=== PATIENT | female | born 1945 | race Caucasian/White ===

== ENCOUNTER 2022-05-16 18:59 | Inpatient (IN) ==
[2022-05-16 20:53] LABS: Basophils # (auto) 0.01 K/uL (0-0.2); Basophils % (auto) 0.1 %; Eosinophils # (auto) 0.01 K/uL (0-0.50); Eosinophils % (auto) 0.1 %; Hematocrit (blood only) 38.5 % (37.0-47.0); Hemoglobin 13.2 g/dl (12.0-16.0); Immature Granulocytes # (auto) 0.02 K/uL (0.01-0.20); Immature Granulocytes % (auto) 0.3 %; Lymphocytes # (auto) 1.01 K/uL (1.2-3.4); Lymphocytes % (auto) 14.8 %; Mean Corpuscular Hemoglobin 29.9 pg (25.0-34.0); Mean Corpuscular Hgb Conc 34.3 g/dL (32.0-36.0); Mean Corpuscular Volume 87.3 fL (80.0-100.0); Mean Platelet Volume 10.6 fL (9.4-12.4); Monocytes % (auto) 8.8 %; Neutrophils # (auto) 5.16 K/uL (1.40-6.50); Neutrophils % (auto) 75.9 %; Platelet Count 246 K/uL (130-400); RDW Coefficient of Variation 14.6 % (11.5-14.5); RDW Standard Deviation 47.2 fL (36.4-46.3); Red Blood Count 4.41 M/uL (4.20-5.40); White Blood Count 6.81 K/ul (4.8-10.8)
[2022-05-16 21:22] LABS: Albumin Level 2.9 gm/dl (3.4-5.0); Anion Gap 8 (3-11); Bilirubin,Total 0.9 mg/dl (0.2-1.0); Calcium 9.3 mg/dl (8.5-10.1); Carbon Dioxide 25 mmol/L (21-32); Chloride 97 mmol/L (98-107); Potassium 4.2 mmol/L (3.5-5.1); Sodium 130 mmol/L (136-145)
[2022-05-16 21:28] LABS: Alanine Aminotransferase 37 U/L (7-52); Alkaline Phosphatase 229 U/L (34-104); Aspartate Aminotransferase 96 U/L (13-39); BUN Creatinine Ratio 41.2 (10-20); Blood Urea Nitrogen 42 mg/dl (6-23); Est GFR (Non-African American) 52.6 ml/min; Glucose 104 mg/dl (70-99(Fasting)); Total Protein 5.9 gm/dl (6.0-8.3)
[2022-05-16] MEDS ORDERED: MoRPHine SULFATE 4 MG/ML 1 ML CARP\\VIAL IV PRN (21:46)
[2022-05-16] MEDS ORDERED: ONDANSETRON INJ 2 MG/ML 2 ML VIAL IV STA (21:46)
--- NOTE | 2022-05-16 21:49 | Emergency Department Note ---
Impression & Plan Contusion of lower leg, right, Cellulitis, Acute hyponatremia ED Provider Note NAME: RANDALL PRINGLE AGE: 76 SEX: F : 1945 ARRIVES VIA: Ambulance INFORMANT: Patient, ED PROVIDER(S): Angel May DO CHIEF COMPLAINT: Leg pain HPI: The patient is a 76-year-old female who presented to the emergency department for an evaluation of leg pain. The patient had a fall earlier in the week. She was seen in our facility and had x-rays obtained. No definite fracture was noted. The patient returns tonight because of increasing pain and swelling especially in the right leg. She denies having any head injury. She was not seen by her family doctor for the symptoms. She has had no fever. She denies having any redness. She denies having any knee pain or hip pain. The patient presented with family members who also help provide history. ROS: See above HPI for pertinent positives & negatives. A total of 10 systems reviewed and were otherwise negative. PAST MEDICAL HISTORY: See Below PAST SURGICAL HISTORY: See Below FAMILY HISTORY: See Below SOCIAL HISTORY: See Below HOME MEDICATIONS: See Below ALLERGIES: See Below VITALS: See Below PHYSICAL EXAMINATION: GENERAL: Patient is awake alert in no acute distress patient is resting comfortably and showing no signs of anxiety EYES: The conjunctivae are clear. The pupils are round and reactive. EARS, NOSE, MOUTH AND THROAT: The nose is without any evidence of any deformity. Mucous membranes are moist. Tongue is midline. NECK: The neck is nontender and supple. RESPIRATORY: Normal respiratory effort is noted there is no evidence of wheezing rhonchi or rales CARDIOVASCULAR: Regular rate and rhythm noted there no murmurs rubs or gallops normal S1 normal S2. GASTROINTESTINAL: The abdomen is soft. Abdomen is nontender. MUSCULOSKELETAL/EXTREMITIES: There is no evidence of gross deformity full range of motion is noted in the hips and shoulders. There is tenderness to palpation over the right anterior pollard. There is no ecchymosis. There is no erythema. SKIN: Skin was warm and dry. Pedal edema was noted bilaterally. There is no signs of cellulitis. Pulses are symmetric in both feet. NEUROLOGIC: Patient is awake alert and oriented x3 MEDICAL DECISION MAKING: The patient is a 76-year-old female who presented to the emergency department for an evaluation of leg pain. The patient had a fall a few days ago. She was seen in our facility and had normal x-rays. She presents back today with family members because of severe pain. The patient has no soft tissue air noted on x- ray. She has no skin changes of erythema overlying the injury or the right leg. She was treated with pain medication in the emergency department. She was also treated with IV antibiotics after inflammatory markers were significantly elevated. She was ordered blood cultures. I discussed patient's laboratory and radiographic studies with her and her family members. I discussed her condition with the on-call [facility]. They have agreed to evaluate the patient in the emergency department for further management and disposition. Triage Nursing notes reviewed. Prior medical records reviewed Vital Signs: reviewed and remarkable for no significant abnormalities Differential diagnosis: Fracture, subluxation, dislocation, contusion, ligamentous injury, neurovascular, compartment syndrome, rhabdomyolysis, as well as other pathologies. ER treatment provided: See below Diagnostics interpreted by me: ECG: none Cardiac Monitoring: An order was placed for continuous cardiac monitoring. The monitor shows a rate of 90 bpm with sinus rhythm. Laboratory studies: As stated above and show below. Imaging studies: See below. Radiographic imaging was reviewed by myself Consultation(s): I discussed this case with Dr. Newsome who is on-call for the [facility]. 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 Son No problems noted. Daughter No problems noted. Family/Other Breast cancer Maternal aunt Social History Smoking Status: Never smoker Cigarettes Per Day: 1 PPD x 50+yrs; Second Hand Exposure: Yes; Hx Alcohol Use: No Hx Substance Use: No Preferred Language: Palestinian Communication Ability: Effective Visual Impairment: No Limitations Hearing Ability: Normal Packer Inspector Required: No Beliefs That Will Affect Care: None marital status: Current Living Situation: Alone current occupational status: retired current occupation: RN Feels Safe at Home: Yes caffeine: Yes (1 cup/day) during the past year weight has: remained stable Assistive Devices: Walker Allergies Allergies Allergy/AdvReac Type Severity Reaction Status Date / Time Iodinated Contrast Media Allergy Severe SOB Verified 01/28/22 15:46 Penicillins Allergy Severe SOB Verified 01/28/22 15:46 aspirin AdvReac Mild Stomach Verified 01/28/22 15:46 upset codeine AdvReac Mild Stomach Verified 01/28/22 15:46 upset Home Meds Home Medications Medication Instructions Recorded Confirmed lisinopril 20 mg tablet 20 mg PO DAILY 08/22/21 01/28/22 mecobalamin (vitamin B12) 10,000 10,000 mcg subcut MONTHLY 08/22/21 01/28/22 mcg solution for injection mecobalamin (vitamin B12) 5,000 5,000 mcg PO DAILY 08/22/21 01/28/22 mcg disintegrating tablet metoprolol succinate 50 mg 50 mg PO BID 08/22/21 01/28/22 tablet,extended release 24 hr palbociclib 75 mg capsule (Ibrance) 75 mg PO DAILY 08/22/21 01/28/22 Results & Data (ED) Vital Signs Vital Signs - 24 hr 05/16/22 19:27 05/16/22 21:09 05/16/22 22:56 Temperature 36.5 C Temperature Source Temporal Artery Scan Pulse Rate 101 H Pulse Rate [Apical] 88 90 Pulse Rhythm [Apical] Regular Pulse Strength [Apical] Normal Respiratory Rate 18 25 H 16 Respiratory Effort / Characteristics Short of Breath Non-Labored Spontaneous Respiratory Depth Normal Normal Respiratory Pattern Regular Blood Pressure 127/80 Blood Pressure [Right Arm] 170/101 H 127/93 Blood Pressure Mean 95 Blood Pressure Mean [Right Arm] 124 104 Pulse Oximetry 95 98 94 Oxygen Delivery Method Room Air Room Air Room Air Sepsis Recent Fever Within 48 Hours No Sepsis New/Unexplained Change in Mental Status No Sepsis Action Taken by Nursing No Action Required Home Medications Current Medication List: was personally reviewed by me Laboratory Data Attestation: I reviewed the patient's lab results. 05/16/22 20:24 05/16/22 20:24 Lab Results 05/16/22 05/16/22 05/16/22 Range/Units 20:24 20:24 20:24 WBC 6.81 (4.8-10.8) K/ul RBC 4.41 (4.20-5.40) M/uL Hgb 13.2 (12.0-16.0) g/dl Hct 38.5 (37.0-47.0) % MCV 87.3 (80.0-100.0) fL MCH 29.9 (25.0-34.0) pg MCHC 34.3 (32.0-36.0) g/dL RDW Std Deviation 47.2 H (36.4-46.3) fL RDW Coeff of Roberta 14.6 H (11.5-14.5) % Plt Count 246 (130-400) K/uL MPV 10.6 (9.4-12.4) fL Immature Gran % (Auto) 0.3 % Neut % (Auto) 75.9 % Lymph % (Auto) 14.8 % [place] % (Auto) 8.8 % Eos % (Auto) 0.1 % Baso % (Auto) 0.1 % Neut # (Auto) 5.16 (1.40-6.50) K/uL Lymph # (Auto) 1.01 L (1.2-3.4) K/uL [place] # (Auto) 0.60 H (0.11-0.59) K/uL Eos # (Auto) 0.01 (0-0.50) K/uL Baso # (Auto) 0.01 (0-0.2) K/uL Immature Gran # (Auto) 0.02 (0.01-0.20) K/uL ESR 75 H (0-30) mm/hr Sodium 130 L (136-145) mmol/L Potassium 4.2 (3.5-5.1) mmol/L Chloride 97 L (98-107) mmol/L Carbon Dioxide 25 (21-32) mmol/L Anion Gap 8 (3-11) BUN 42 H (6-23) mg/dl Creatinine 1.02 (0.6-1.2) mg/dl Est Cr Clr Drug Dosing Not Reportable Est GFR ( Amer) 61.0 ml/min Est GFR (Non-Af Amer) 52.6 ml/min BUN/Creatinine Ratio 41.2 H (10-20) Glucose 104 H (70-99(Fasting)) mg/dl Calcium 9.3 (8.5-10.1) mg/dl Total Bilirubin 0.9 (0.2-1.0) mg/dl AST 96 H (13-39) U/L ALT 37 (7-52) U/L Alkaline Phosphatase 229 H (34-104) U/L Total Creatine Kinase 81 (26-192) U/L C-Reactive Protein 15.54 H (0-0.5) mg/dl Total Protein 5.9 L (6.0-8.3) gm/dl Albumin 2.9 L (3.4-5.0) gm/dl Globulin 3.0 (2.5-4.0) gm/dl Albumin/Globulin Ratio 1.0 (0.9-2) Procalcitonin (0-0.5) ng/ml 05/16/22 Range/Units 20:24 WBC (4.8-10.8) K/ul RBC (4.20-5.40) M/uL Hgb (12.0-16.0) g/dl Hct (37.0-47.0) % MCV (80.0-100.0) fL MCH (25.0-34.0) pg MCHC (32.0-36.0) g/dL RDW Std Deviation (36.4-46.3) fL RDW Coeff of Roberta (11.5-14.5) % Plt Count (130-400) K/uL MPV (9.4-12.4) fL Immature Gran % (Auto) % Neut % (Auto) % Lymph % (Auto) % [place] % (Auto) % Eos % (Auto) % Baso % (Auto) % Neut # (Auto) (1.40-6.50) K/uL Lymph # (Auto) (1.2-3.4) K/uL [place] # (Auto) (0.11-0.59) K/uL Eos # (Auto) (0-0.50) K/uL Baso # (Auto) (0-0.2) K/uL Immature Gran # (Auto) (0.01-0.20) K/uL ESR (0-30) mm/hr Sodium (136-145) mmol/L Potassium (3.5-5.1) mmol/L Chloride (98-107) mmol/L Carbon Dioxide (21-32) mmol/L Anion Gap (3-11) BUN (6-23) mg/dl Creatinine (0.6-1.2) mg/dl Est Cr Clr Drug Dosing Est GFR ( Amer) ml/min Est GFR (Non-Af Amer) ml/min BUN/Creatinine Ratio (10-20) Glucose (70-99(Fasting)) mg/dl Calcium (8.5-10.1) mg/dl Total Bilirubin (0.2-1.0) mg/dl AST (13-39) U/L ALT (7-52) U/L Alkaline Phosphatase (34-104) U/L Total Creatine Kinase (26-192) U/L C-Reactive Protein (0-0.5) mg/dl Total Protein (6.0-8.3) gm/dl Albumin (3.4-5.0) gm/dl Globulin (2.5-4.0) gm/dl Albumin/Globulin Ratio (0.9-2) Procalcitonin 58.79 H (0-0.5) ng/ml Administered Medications Morphine Sulfate (Morphine Sulfate 4 Mg/Ml 1 Ml Carp\Vial) 4 mg IV Q30M PRN PRN Reason: Pain Stop: 05/30/22 21:45 Last Admin: 05/16/22 21:52 Dose: 4 mg Documented By: NELL Discontinued Medications Ondansetron HCl (Ondansetron Inj 2 Mg/Ml 2 Ml Vial) 4 mg IV NOW STA Stop: 05/16/22 21:47 Last Admin: 05/16/22 21:51 Dose: 4 mg Documented By: NELL Imaging Data Attestation: I personally reviewed and interpreted this imaging study as follows: My Impression: X-rays of the right tib-fib were obtained in the emergency department. My interpretation is no definite fracture no dislocation, this was compared to x- ray from earlier this week and no acute changes were noted. Radiologist's Impression: Patient: RANDALL PRINGLE (Female) : 41 Status: ER Date: 05/16/22 23:24 Room #:B History: RIGHT LEG SWELLING Slices: 22 Priors: Tech: Blank Arellano @ [phone] Exams: US VENOUS RIGHT LOWER EXTREMITY Contrast: Accession Numbers: [id number] Referring Physician: REFERRED SELF Preliminary Findings Only See Final Report For Complete Findings US VENOUS RIGHT LOWER EXTREMITY: No evidence of deep venous thrombosis. Radiologist: José Olvera MD Study ready at 23:28 and initial results transmitted at 23:39 Discharge Plan Visit Data Chief Complaint: Leg Injury/Pain Stated Complaint: RT. LEG PAIN/SWELLING ED Provider: Angel May Discharge Problem: Contusion of lower leg, right, Cellulitis, Acute hyponatremia Patient Disposition: Being Evaluated by Hospitalist Forms Stand Alone Forms: My [employer] Prescriptions Prescriptions: No Action lisinopril 20 mg tablet 20 mg PO DAILY metoprolol succinate 50 mg tablet extended release 24 hr 50 mg PO BID mecobalamin (vitamin B12) 5,000 mcg tablet,disintegrating 5,000 mcg PO DAILY mecobalamin (vitamin B12) 10,000 mcg recon soln 10,000 mcg subcut MONTHLY Ibrance 75 mg capsule 75 mg PO DAILY Rx Instructions: administer on days 1 through 21 of a 28-day treatment cycle Referrals Referrals: Benjamín Graff MD [Primary Care Provider] - : Contusion of lower leg, right Qualifiers: Encounter type: initial encounter Qualified Code(s): S80.11XA - Contusion of right lower leg, initial encounter Cellulitis Qualifiers: Site of cellulitis: extremity Site of cellulitis of extremity: lower extremity Laterality: right Qualified Code(s): L03.115 - Cellulitis of right lower limb
[2022-05-16 22:30] LABS: C Reactive Protein 15.54 mg/dl (0-0.5); Creatine Kinase 81 U/L (26-192)
[2022-05-16] MEDS ORDERED: VANCOMYCIN HCL 2,000 MG in SODIUM CHLORIDE 0.9% 500 ML IV ONE (23:35)
[2022-05-16] MEDS ORDERED: VANCOMYCIN CONSULT ACTIVE PRN (23:35)
[2022-05-17] MEDS: cefTRIAXone SODIUM 2,000 MG/70 ML BAG IV STA ×2 (00:48→01:01)
[2022-05-17] MEDS ORDERED: POLYETHYLENE (MIRALAX) 17 GM PACK PO PRN (03:01)
[2022-05-17] MEDS ORDERED: HYDROmorphone INJ 0.5 MG/0.5 ML SYR IV PRN (03:01)
[2022-05-17] MEDS ORDERED: ALBUTEROL HFA 8 GM INHALER INH PRN (03:01)
--- NOTE | 2022-05-17 05:51 | History and Physical Report ---
DATE OF ADMISSION: 05/17/2022 CHIEF COMPLAINT: Status post fall, right lower extremity pain. HISTORY OF PRESENT ILLNESS: This is a 76-year-old female with past medical history significant for hyperlipidemia, grade 1 diastolic dysfunction, hypertension, chronic kidney disease stage III, history of MRSA, history of viral myocarditis, history of GI bleed, history of chemotherapy-induced neuropathy, history of bilateral breast cancer, initially diagnosed in June 2010, status post bilateral mastectomies, left axillary lymph node dissection in 2015, noticed to have metastatic disease involving the spine as well as paraesophageal region, now has liver metastatic disease as well as bilateral lung nodules, which was suspicious in 2019, malignant pleural effusion. She is status post adjuvant chemotherapy, adjuvant radiation therapy. Currently, chemo is stopped. She has bilateral malignant pleural effusion, status post right- sided PleurX catheter placement, gets fluid drained 3 times a week. She is currently DNR/DNI. She was living alone, ambulating without any support. As per daughter in the room, lower extremity swelling is getting worse since the last 1 month. She fell a couple of days ago, mechanical fall and fell on the right side and today she was noticed to have a lot of pain. Currently after fall living with the daughter, and was brought into the hospital because of pain. Initial workup was possible cellulitis and ER started on vancomycin. Resting comfortably and hemodynamically stable. Denies any headache. No neck pain, no back pain. No chest pain. While resting no shortness of breath. Appetite is okay. No difficulty swallowing. Vision is okay. No earache. has some runny nose. No sore throat. No nausea, no abdominal pain. Normal bowel and bladder movements as per the patient. ALLERGIES: IODINATED CONTRAST MEDIA, PENICILLIN, ASPIRIN, CODEINE. PAST MEDICAL HISTORY: As mentioned above. PAST SURGICAL HISTORY: Bilateral radical mastectomy. MEDICATIONS: The patient is currently on albuterol 2 puffs inhalation q. 4 hours p.r.n., vitamin B12 1000 mcg subcutaneous monthly, vitamin B12 500 mcg p.o. b.i.d., lisinopril 20 mg p.o. daily, metoprolol tartrate 50 mg p.o. b.i.d., prochlorperazine 5 mg p.o. t.i.d., torsemide 20 mg p.o. a.m., Anoro Ellipta one inhalation q.p.m. FAMILY HISTORY: Significant for mother had alcoholism, liver cancer; father had pancreatic and liver cancer; sister has breast cancer. SOCIAL HISTORY: , currently living with the daughter. Former smoker, quit in 2019, smoked 1 pack a day for 60 years. Stopped drinking alcohol in early 30s. No drug use. REVIEW OF SYSTEMS: As per HPI. Rest of the review of systems is negative. PHYSICAL EXAMINATION: GENERAL: The patient is of moderate build, not in acute distress. VITAL SIGNS: Temperature 36.5, pulse 93, respiratory rate 28, blood pressure 142/72, oxygen 96% on room air. HEENT: Pupils equal, round and reactive to light. Oral mucosa moist. NECK: No JVD or neck masses. CARDIOVASCULAR: S1 and S2 heard. Regular rate and rhythm. No murmur, no gallop. RESPIRATORY SYSTEM: Normal AP diameter. No accessory muscle use. No wheezing, no crackles. ABDOMEN: Soft, bowel sounds present, nontender, no distention. CENTRAL NERVOUS SYSTEM: Alert and oriented. Speech is clear. Obeys simple commands. Insight is okay. Moves extremities. EXTREMITIES: Bilateral lower extremity gross edema present. Right lower extremity, tenderness in the pollard region and also mild erythematous changes in the lower part of the leg. LABORATORY DATA: WBC 6.8, hemoglobin 13.2, hematocrit 38.5, platelets 246. ESR 75. Sodium 130, potassium 4.2, chloride 97, bicarbonate 25, BUN 42, creatinine 1.02, serum glucose 104, calcium 9.3, total bilirubin 0.9, AST 96, ALT 37, alkaline phosphatase 229. C-reactive protein 15.5, procalcitonin 58. SARS-CoV-2 rapid test negative. IMAGING DATA: Venous Doppler negative for DVT, tibia fibula x-ray results are pending. EKG: Sinus rhythm with PACs at a rate of 96. ASSESSMENT AND PLAN: This 76-year-old female presents with a mechanical fall and right lower extremity pain. 1. Mechanical fall, right lower extremity pain, possible cellulitis: Will follow the tibia fibula x-ray results and also get a CT scan of the right lower extremity. ER started empirically on vancomycin, which will be continued for now. Pain control. When stable, PT/OT. Monitor in the hospital. 2. History of metastatic bilateral breast cancer, status post bilateral mastectomy, chemoradiation: Currently not on any chemo. Currently, the patient is DNR/DNI. Malignant pleural effusion, status post PleurX catheter on the right side, gets drained 3 times a week. 3. Chronic diastolic congestive heart failure: Having lower extremity edema. Continue home torsemide. Monitor for any volume overload. 4. History of hypertension: Continue lisinopril, metoprolol. We will monitor the blood pressure. 5. Chronic kidney disease stage III: Currently with a creatinine of 1.02. Will follow the labs. 6. Hyponatremia: Sodium of 130, on diuretics. Will follow the repeat labs. 7. Deep venous thrombosis prophylaxis: Placed on Lovenox. DISPOSITION: Closely monitor in the medical floor. PT/OT prior to discharge. Social service to help with discharge planning. CODE STATUS: DNR/DNI as per my discussion with the patient. Job ID: [id number] MTDD
--- NOTE | 2022-05-17 06:52 | CT Scan Report ---
CT tib/fib RT wo con CLINICAL HISTORY: s/p fall. tender down knee to ankle right lower ex COMPARISON STUDY: Right tibia and fibula radiographs May 16, 2022. TECHNIQUE: Axial images of the right tibia and fibula and lower leg were obtained without IV contrast . Sagittal and coronal reconstructions were viewed. Automated exposure control was utilized for the s tudy. A dose lowering technique was utilized adhering to the principles of ALARA. FINDINGS: A small right knee joint effusion is noted. No acute fracture within the right tibia or fib deshawn is identified. There is extensive subcutaneous edema of the visualized right lower extremity. No fluid collection is identified to suggest hematoma or abscess. There is no soft tissue gas. Alignment of the right knee and right ankle is anatomic. There is moderately osteoarthritic. IMPRESSION: 1. No acute fracture within the right tibia or fibula. 2. Extensive subcutaneous edema of the visualized right lower extremity. No fluid collection to sugge st hematoma. 3. Small right knee joint effusion. Moderate right knee osteoarthritis. ACT 112: Negative or not required by law. Electronically signed by: Jose Eduardo Panchal M.D. 05/17/2022 6:49 AM
--- NOTE | 2022-05-17 07:13 | Ultrasound Report ---
RIGHT LOWER EXTREMITY VENOUS DOPPLER CLINICAL HISTORY: Right lower extremity edema. Evaluate for deep venous thrombus. COMPARISON STUDY: No previous studies for comparison. TECHNIQUE: Sonography of the deep venous system of the right lower extremity was performed. Compress ion and augmentation were evaluated. FINDINGS: The right common femoral, superficial femoral and popliteal veins were compressible. Augme ntation was normal. Flow was shown within the deep calf vessels. Extensive subcutaneous edema of the right lower extremity is noted. IMPRESSION: No evidence of deep venous thrombus within the right lower extremity. ACT 112: Negative or not required by law. Electronically signed by: Jose Eduardo Panchal M.D. 05/17/2022 7:12 AM
[2022-05-17 07:15] LABS: Basophils # (auto) 0.01 K/uL (0-0.2); Basophils % (auto) 0.1 %; Eosinophils # (auto) 0.02 K/uL (0-0.50); Eosinophils % (auto) 0.3 %; Hematocrit (blood only) 40.5 % (37.0-47.0); Hemoglobin 13.5 g/dl (12.0-16.0); Immature Granulocytes # (auto) 0.02 K/uL (0.01-0.20); Immature Granulocytes % (auto) 0.3 %; Lymphocytes # (auto) 1.64 K/uL (1.2-3.4); Mean Corpuscular Hgb Conc 33.3 g/dL (32.0-36.0); Mean Platelet Volume 10.3 fL (9.4-12.4); Monocytes # (auto) 0.67 K/uL (0.11-0.59); Neutrophils % (auto) 68.3 %; Platelet Count 241 K/uL (130-400); RDW Coefficient of Variation 14.8 % (11.5-14.5); White Blood Count 7.46 K/ul (4.8-10.8)
[2022-05-17] MEDS: ENOXAPARIN INJ 40 MG/0.4 ML SYR SQ SCH (07:50)
[2022-05-17] MEDS: CYANOCOBALAMIN (B-12) 500 MCG TABLET PO SCH ×2 (07:52→20:39)
[2022-05-17] MEDS: METOPROLOL TARTRATE 50 MG TAB PO SCH ×2 (07:52→19:50)
[2022-05-17] MEDS: PROCHLORPERAZINE MALEATE 5 MG TAB PO SCH ×3 (07:53→20:39)
[2022-05-17] MEDS: TORSEMIDE 20 MG TAB PO SCH (07:53)
[2022-05-17] MEDS: ACETAMINOPHEN 325 MG TAB PO PRN ×2 (07:55→12:41)
--- NOTE | 2022-05-17 08:22 | Communication Note ---
Date of Service: May 17, 2022 Transferring to med/tele for possible acute diastolic chf. Consulted cardiology
[2022-05-17 08:32] LABS: BUN Creatinine Ratio 43.4 (10-20); Calcium 9.9 mg/dl (8.5-10.1); Creatinine Clr Calc Pharmacy 40.2 ml/min; Est GFR (African American) 63.3 ml/min; Est GFR (Non-African American) 54.6 ml/min; Potassium 4.2 mmol/L (3.5-5.1)
--- NOTE | 2022-05-17 08:48 | XRay Report ---
XR tibia fibula RT 2V CLINICAL HISTORY: fall COMPARISON: Right tibia and fibula radiographs May 14, 2022. FINDINGS: No acute fracture within the right tibia or fibula is identified. No osseous lesions are n oted. Extensive right lower leg soft tissue swelling is present. IMPRESSION: 1. No acute fracture within the right tibia or fibula. 2. Extensive right lower leg soft tissue swelling. ACT 112: Negative or not required by law. Electronically signed by: Jose Eduardo Panchal M.D. 05/17/2022 8:46 AM
[2022-05-17] MEDS ORDERED: lisinopril 20 MG TAB PO SCH (09:00)
--- NOTE | 2022-05-17 10:12 | XRay Report ---
XR chest 1V portable HISTORY: Shortness of breath. ? CHF COMPARISON: None. FINDINGS: No pneumothorax. A right basilar chest tube appears in good position. There is a small righ t pleural effusion. There is a small to moderate left pleural effusions. Left basilar densities favor compressive atelectasis. The heart is mildly enlarged. S-shaped scoliosis is noted. Right jugular Po rt-A-Cath terminates in the distal SVC. There are calcifications within the aortic knob. Mild chronic interstitial thickening is noted. A few scarlike density seen within the right lung apex. IMPRESSION: 1. There is a right basilar chest tube and a small right pleural effusion. No pneumothorax. 2. There is a small to moderate left pleural effusion with left basilar densities favoring compressiv e atelectasis. ACT 112: Negative or not required by law. Electronically signed by: Baron Han M.D. 05/17/2022 10:11 AM
--- NOTE | 2022-05-17 10:59 | Cardiology Consultation ---
Date of Consultation May 17, 2022 Assessment & Plan (1) Edema: (2) Pleural effusion, malignant: (3) Hyponatremia: Plan Patient admitted for leg pain after a fall. Found also to have worsening fluid status in the setting of metastatic breast CA. She has been on torsemide for several months for b/l edema at times and b/l pleural effusions (malignant) with right Pleurx catheter. Currently she is laying supine, comfortable. No distress. No orthopnea. She does have left moderate pleural effusion with significant edema. No DVT noted. Recommend trial of furosemide 20 mg IV this afternoon to mobilize fluid. Torsemide will be on hold. Repeat IV furosemide tomorrow pending clinical status and labs. Monitor K and NA levels. Sodium lower may be dilutional and should improve with removal of fluid. BP trending lower after AM meds. Reduce lisinopril to 10 mg daily, starting tomorrow. Continue metoprolol. She had an echo in Mar 2022 with preserved LV systolic function, no valvular disease, grade I diastolic dysfunction. No indication to repeat at this time, as it would not change medical management. Case discussed with Dr. West. Supervising Physician Co-Signing Physician Notes Supervising Physician Attestation: I have personally performed a history and physical examination on the patient. I agree with the physician emergency room physician assistant's findings and plan as documented with the following additions. Subjective: Patient without acute complaint. Exam: Pulmonary: Decreased breath sounds at the left base, 2+ bilateral lower extremity edema, patient states her legs are always swollen Data: Chest x-ray with right pleural catheter in place, moderate left pleural effusion Assessment and Plan: Metastatic breast cancer History of malignant pleural effusions Lower extremity edema -Echocardiogram with preserved LVEF, mild diastolic dysfunction. -Furosemide 20 mg IV administered this morning in favor for oral torsemide. -Blood pressure borderline low, systolic readings in the 90s. -Defer further management of diuretics to the hospitalist service. - DVT prophylaxis: Lovenox 40 mg subcutaneously daily. Shailesh West, DO History of Present Illness Reason for Consultation: CHF; Volume Overload Requesting Physician: Dr. Newsome Attending Physician: Dr. West History of Present Illness Patient is a 76 year old female who was admitted to [facility] with weakness and leg pain after a fall at home. She was having difficult getting around and brought to the ER. She has reported also worsening LE edema over the last few days. In ER, no fractures were identified and venous duplex was negative for DVT bilaterally. She has a complex history significant for metastatic breast CA with liver METS, malignant pleural effusions s/p right Pleurx catheter. She stopped chemotherapy several months ago due to progressive disease. She follows with Palliative care and they are considering transitioning to full hospice care. Cardiology was consulted during admission for fluid retention, edema, and concerns this was heart failure. Patient denies cardiac history. She reports being told of a murmur over the last 30+ years, but no valvular issues on repeat echo, most recently in Mar 2022. She admits to SOB with activities but reports this has been problematic for awhile. She has known b/l pleural effusions and was started on torsemide several months ago, which has aided her edema until recently. At time of consult, patient resting in bed comfortably. Denies acute complaints other than leg pain and edema noted b/l. She is laying supine without SOB/orthopnea. No cough. Pleur x drained this morning with 350cc of fluid per nurse. No chest pain. No dizziness or lightheadedness. Allergies Allergy/AdvReac Type Severity Reaction Status Date / Time Iodinated Contrast Media Allergy Severe SOB Verified 05/17/22 00:35 Penicillins Allergy Severe SOB Verified 05/17/22 00:35 aspirin AdvReac Mild Stomach Verified 05/17/22 00:35 upset codeine AdvReac Mild Stomach Verified 05/17/22 00:35 upset Home Medications Medication Instructions Recorded Confirmed Type lisinopril 20 mg tablet 20 mg PO DAILY 08/22/21 05/17/22 History albuterol sulfate 90 mcg/actuation 2 puff inhalation Q4 PRN Shortness 05/17/22 05/17/22 History aerosol inhaler (Ventolin HFA) Of Breath cyanocobalamin (vitamin B-12) 1,000 mcg subcut MONTHLY 05/17/22 05/17/22 History 1,000 mcg/mL injection solution cyanocobalamin (vitamin B-12) 500 500 mcg PO BID 05/17/22 05/17/22 History mcg lozenges (Vitamin B-12) metoprolol tartrate 50 mg tablet 50 mg PO BID 05/17/22 05/17/22 History prochlorperazine maleate 5 mg 5 mg PO TID 05/17/22 05/17/22 History tablet torsemide 20 mg tablet 20 mg PO QAM 05/17/22 05/17/22 History umeclidinium 62.5 mcg-vilanterol 1 ea inhalation QPM 05/17/22 05/17/22 History 25 mcg/actuation powdr for inhalation (Anoro Ellipta) Patient History Medical History Bilateral breast cancer History of chemotherapy History of GI bleed History of radiation therapy Neuropathy Osteonecrosis left jaw Primary malignant neoplasm of breast with metastasis SOB (shortness of breath) Viral myocarditis Surgical History H/O bilateral mastectomy with left axillary lymph node dissection 2010 H/O tubal ligation History of total left knee replacement (TKR) S/P appendectomy S/P cholecystectomy Family History Mother , 73yo Alcoholism Father , 68yo Alcoholism Stomach ulcer Sister Breast cancer Sister Family history unknown Son No problems noted. Son No problems noted. Daughter No problems noted. Family/Other Breast cancer Maternal aunt Social History Smoking Status: Former smoker Cigarettes Per Day: 1 PPD x 50+yrs; Smoking End Date: 6 years ago; Second Hand Exposure: Yes; Hx Alcohol Use: No Hx Substance Use: No Preferred Language: Yakut Communication Ability: Effective Visual Impairment: No Limitations Hearing Ability: Normal Receptionist/Telephone Operator Required: No Beliefs That Will Affect Care: None marital status: Current Living Situation: Family Current Living Situation Comment: Lives with daughter and grand-daughter current occupational status: retired current occupation: RN Other Information That Helps Us Care for You: No Feels Safe at Home: Yes Safety Concerns: Feels Safe At This Time caffeine: Yes (1 cup/day) during the past year weight has: remained stable Assistive Devices: Walker Review of Systems Review of Systems: All systems reviewed & are unremarkable except as noted in HPI & below Physical Exam Constitutional: + ill appearing; no acute distress Neck: trachea midline, no thyromegaly Respiratory: no labored breathing Auscultation: + diminished lung sounds and + wheezes Cardiovascular: Rate/Rhythm: regular rate and regular rhythm Heart Sounds: + murmur (II/ systolic murmur ) Vessels: no JVD Extremities: + edema (2+ edema b/l to thighs. ) Gastrointestinal (Abdomen): normal bowel sounds, soft, nontender, no hepatosplenomegaly Musculoskeletal: no cyanosis or clubbing, extremities motor strength 5/5 Neurologic: PERRL, EOMI, accommodation nl, no face palsy, no dysarthria Results & Data ([facility]) Vital Signs (Past 12 Hours) Vital Signs Temp Pulse Pulse Pulse Resp BP BP 05/17/22 10:10 36.5 C 90 18 95/58 L 05/17/22 09:56 05/17/22 07:16 36.6 C 94 H 16 133/73 05/17/22 03:39 05/17/22 03:28 36.7 C 96 H 18 155/72 H 05/17/22 01:00 93 H 28 H 05/17/22 00:30 91 H 24 05/17/22 00:00 94 H 22 142/72 H 05/16/22 23:41 94 H 26 H 160/81 H 05/16/22 23:40 82 05/16/22 22:56 90 16 127/93 Pulse Ox O2 Del Method 05/17/22 10:10 96 Room Air 05/17/22 09:56 Room Air 05/17/22 07:16 95 Room Air 05/17/22 03:39 Room Air 05/17/22 03:28 94 Room Air 05/17/22 01:00 96 05/17/22 00:30 96 05/17/22 00:00 95 05/16/22 23:41 96 05/16/22 23:40 05/16/22 22:56 94 Room Air Laboratory Results Cardiac Enzymes 05/16/22 Range/Units 20:24 AST 96 H (13-39) U/L CBC 05/16/22 05/17/22 Range/Units 20:24 07:01 WBC 6.81 7.46 (4.8-10.8) K/ul RBC 4.41 4.50 (4.20-5.40) M/uL Hgb 13.2 13.5 (12.0-16.0) g/dl Hct 38.5 40.5 (37.0-47.0) % Plt Count 246 241 (130-400) K/uL Neut # (Auto) 5.16 5.10 (1.40-6.50) K/uL Lymph # (Auto) 1.01 L 1.64 (1.2-3.4) K/uL [place] # (Auto) 0.60 H 0.67 H (0.11-0.59) K/uL Eos # (Auto) 0.01 0.02 (0-0.50) K/uL Baso # (Auto) 0.01 0.01 (0-0.2) K/uL Comprehensive Metabolic Panel 05/16/22 05/17/22 Range/Units 20:24 07:01 Sodium 130 L 132 L (136-145) mmol/L Potassium 4.2 4.2 (3.5-5.1) mmol/L Chloride 97 L 99 (98-107) mmol/L Carbon Dioxide 25 21 (21-32) mmol/L BUN 42 H 43 H (6-23) mg/dl Creatinine 1.02 0.99 (0.6-1.2) mg/dl Glucose 104 H 69 L (70-99(Fasting)) mg/dl Calcium 9.3 9.9 (8.5-10.1) mg/dl AST 96 H (13-39) U/L ALT 37 (7-52) U/L Alkaline Phosphatase 229 H (34-104) U/L Total Protein 5.9 L (6.0-8.3) gm/dl Albumin 2.9 L (3.4-5.0) gm/dl Intake and Output 05/16/22 05/17/22 05/17/22 22:59 06:59 14:59 Output Total 500 / 500 350 / 350 Balance -500 / -500 -350 / -350 Output: Urine Amount (Catheter) 500 / 500 Straight 500 / 500 Chest Tube Drainage 350 / 350 Right PleurX Drain System 350 / 350 Other: Weight 64.1 kg Weight Measurement Method Built in [facility] Diagnostic Findings Telemetry reviewed: NSR with PAC's and short runs of atrial tach lasting several beats. EKG reviewed Sinus rhythm with Premature atrial complexes Low voltage QRS Inferior infarct , age undetermined When compared with prior EKG in [facility] in 2019 - no significant changes noted. Chest xray reviewed IMPRESSION: 1. There is a right basilar chest tube and a small right pleural effusion. No pneumothorax. 2. There is a small to moderate left pleural effusion with left basilar densities favoring compressive atelectasis. Outpatient echo reviewed dated Mar 2022: Normal LV systolic function, EF 60-64% LV cavity size is normal. LV wall thickness is normal. Basal septum is thickened consistent with sigmoid septum. No LV thrombus. LV wall motion is normal. LV diastolic function is mildly abnormal Normal pulm pressure. No valvular disease Medications Administered Current Inpatient Medications Acetaminophen (Acetaminophen 325 Mg Tab) 650 mg PO Q4H PRN PRN Reason: pain/fever Stop: 06/16/22 03:00 Last Admin: 05/17/22 12:41 Dose: 650 mg Albuterol (Albuterol Hfa 8 Gm Inhaler) 2 puffs INH Q4 PRN PRN Reason: Shortness Of Breath Stop: 06/16/22 03:00 Cyanocobalamin (Cyanocobalamin (B-12) 500 Mcg Tablet) 500 mcg PO BID [facility] Stop: 06/16/22 08:59 Last Admin: 05/17/22 07:52 Dose: 500 mcg Enoxaparin Sodium (Enoxaparin Inj 40 Mg/0.4 Ml Syr) 40 mg SQ Q24H [facility] Stop: 06/16/22 08:59 Last Admin: 05/17/22 07:50 Dose: 40 mg Hydromorphone HCl (Hydromorphone Inj 0.5 Mg/0.5 Ml Syr) 0.5 mg IV Q4H PRN PRN Reason: Pain Stop: 05/31/22 03:00 Vancomycin HCl 1,000 mg/ (Sodium Chloride) 270 mls @ 200 mls/hr IV Q24H [facility]; Protocol Stop: 05/24/22 20:59 Lisinopril (Lisinopril 20 Mg Tab) 20 mg PO DAILY [facility] Stop: 06/16/22 08:59 Last Admin: 05/17/22 07:51 Dose: 20 mg Metoprolol Tartrate (Metoprolol Tartrate 50 Mg Tab) 50 mg PO BID [facility] Stop: 06/16/22 08:59 Last Admin: 05/17/22 07:52 Dose: 50 mg Miscellaneous Information (Vancomycin Consult Active) 1 each N/A UD PRN PRN Reason: Consult Stop: 06/15/22 23:34 Polyethylene Glycol (Polyethylene (Miralax) 17 Gm Pack) 17 gm PO DAILY PRN PRN Reason: Constipation Stop: 06/16/22 03:00 Prochlorperazine (Prochlorperazine Maleate 5 Mg Tab) 5 mg PO TID [facility] Stop: 06/16/22 08:59 Last Admin: 05/17/22 12:41 Dose: 5 mg Torsemide (Torsemide 20 Mg Tab) 20 mg PO QAM [facility] Stop: 06/16/22 08:59 Last Admin: 05/17/22 07:53 Dose: 20 mg Umeclidinium/Vilanterol (Umeclidinium/Vilanterol 62.5/25mcg 7 Puffs/Inhaler) 1 puffs INH QPM [facility] Stop: 06/16/22 20:59
--- NOTE | 2022-05-17 11:49 | Pharmacy Report ---
Pharmacy PK ABX Note - Date of Service May 17, 2022 - Assessment and Plan Assessment 76 year old F receiving empiric vancomycin for treatment of possible cellulitis of right lower extremity. Pertinent microbiologic data includes: 05/17/22 blood cultures pending. Per H&P, patient has history of MRSA. Likely reasonable to de-escalate antibiotics to provide MSSA/strep coverage if non-purulent infection, but vancomycin okay for now in context of MRSA history. Day # 1 of antimicrobial therapy. Plan Vancomycin * Loading dose: 2000 mg IV x 1 (~31 mg/kg) * Larger than normal loading dose appears to have been result of no patient weight in chart at time of initial order * Maintenance dose: 1000 mg IV every 24 hours * Regimen is predicted to achieve target AUC/ANSLEY of 400-600 mg/L.hr * Random level ordered for: 05/19/22 Pharmacy will continue to follow and will adjust dose/frequency as necessary. Thank you. Pharmacy has transitioned to AUC monitoring for vancomycin. AUC/ANSLEY is the preferred PK/PD target and is associated with decreased risk of nephrotoxicity compared to traditional trough targets.
--- NOTE | 2022-05-17 11:54 | Electrocardiogram Report ---
Test Reason : Blood Pressure : / mmHG Vent. Rate : 096 BPM Atrial Rate : 096 BPM P-R Int : 148 ms QRS Dur : 080 ms QT Int : 338 ms P-R-T Axes : 063 -20 049 degrees QTc Int : 427 ms Sinus rhythm with Premature atrial complexes Low voltage QRS Inferior infarct , age undetermined Abnormal ECG No previous ECGs available Confirmed by Angel Hutchinson ([id number]) on 05/17/2022 11:54:29 AM Referred By: REFERRED SELF Confirmed By:Angel Hutchinson
[2022-05-17] MEDS ORDERED: FUROSEMIDE INJ 20 MG/2 ML VIAL IV ONE (12:14)
[2022-05-17] MEDS ORDERED: ONDANSETRON INJ 2 MG/ML 2 ML VIAL IV ONE (15:07)
[2022-05-17] MEDS ORDERED: ONDANSETRON INJ 2 MG/ML 2 ML VIAL ONE (15:12)
--- NOTE | 2022-05-17 16:55 | Hospitalist Progress Note ---
Date of Service May 17, 2022 Assessment & Plan (1) Contusion of lower leg, right: Plan: Patient is a 76 yr female presents with a mechanical fall and right lower extremity pain. Mechanical fall Right lower extremity pain secondary to above Possible cellulitis --Right Leg CT:No acute fracture within the right tibia or fibula. Extensive subcutaneous edema of the visualized right lower extremity. No fluid collection to suggest hematoma. Small right knee joint effusion. Moderate right knee osteoarthritis. --Venous Doppler:No evidence of deep venous thrombus within the right lower extremity. --Right Leg X ray:No acute fracture within the right tibia or fibula. Extensive right lower leg soft tissue swelling. --Elevated CRP, procalcitonin Blood cultures pending Imaging not suggestive of any fractures Pain control Fall precautions PT OT as able Volume overload: Likely multifactorial Chronic malignant pleural effusion Metastatic disease S/P right Pleurx catheter Acute and Chronic diastolic CHF Hypoalbuminemia --CXR:There is a right basilar chest tube and a small right pleural effusion. No pneumothorax. There is a small to moderate left pleural effusion with left basilar densities favoring compressive atelectasis. Venous Doppler negative for DVT Check BNP, ECHO Received IV Lasix Torsemide on hold Monitor and replace electrolytes as needed Appreciate cardiology input Monitor I's and O's, daily weight Continue metoprolol, lisinopril Hyponatremia Likely secondary to volume overload Monitor sodium levels No change in mental status currently H/O Metastatic B/L Breast cancer S/P bilateral mastectomy, chemoradiation Currently not on any chemotherapy Malignant pleural effusion S/P PleurX catheter on the right side, gets drained 3 times a week Hypertension: Continue lisinopril, metoprolol CKD III Monitor renal function Avoid nephrotoxic agents as able DVT Px: Lovenox SQ CODE STATUS: DNR/DNI Admission and Anticipated Discharge Date Admission Date: May 17, 2022 Subjective Patient is seen and examined at bedside States having right leg pain and bilateral leg swelling Also states having nausea, vomiting today Discussed with patient's family at bedside Denies any chest pain, dyspnea, dizziness, abdominal pain No other complaints Review of Systems Review of Systems: All systems reviewed & are unremarkable except as noted in Subjective Physical Exam Physical Exam: Physical Exam: Vitals signs as noted above General Appearance:Moderately built and nourished, Elderly, chronic ill appearing, no apparent distress Head: normocephalic, Atraumatic Eyes: normal inspection, EOMI Neck: supple, Trachea midline Respiratory/Chest: Decreased breath sounds, CTA, No accessory muscle use Cardiovascular: S1, S2, + systolic murmur Abdomen/GI:Soft, Non tender, Bowel sounds present Extremities/Musculoskeletal:normal inspection, B/L LE edema 3+, Mild RLE erythema Neurologic/Psych:AAOX3, grossly no focal neurological deficits Skin: normal color, warm Results & Data Results & Data ([facility]) Vital Signs (Past 12 Hours) Vital Signs Temp Pulse Pulse Resp BP Pulse Ox O2 Del Method 05/17/22 13:00 66 18 97/58 L 97 Room Air 05/17/22 07:37 Room Air 05/17/22 10:10 36.5 C 90 18 95/58 L 96 Room Air 05/17/22 09:56 Room Air 05/17/22 07:16 36.6 C 94 H 16 133/73 95 Room Air Laboratory Results Short CBC 05/16/22 05/17/22 Range/Units 20:24 07:01 WBC 6.81 7.46 (4.8-10.8) K/ul Hgb 13.2 13.5 (12.0-16.0) g/dl Hct 38.5 40.5 (37.0-47.0) % Plt Count 246 241 (130-400) K/uL BMP 05/16/22 05/17/22 20:24 07:01 Sodium 130 L 132 L Potassium 4.2 4.2 Chloride 97 L 99 Carbon Dioxide 25 21 BUN 42 H 43 H Creatinine 1.02 0.99 Glucose 104 H 69 L Calcium 9.3 9.9 Cardiac Enzymes 05/16/22 Range/Units 20:24 Total Creatine Kinase 81 (26-192) U/L Liver Function 05/16/22 Range/Units 20:24 Total Bilirubin 0.9 (0.2-1.0) mg/dl AST 96 H (13-39) U/L ALT 37 (7-52) U/L Alkaline Phosphatase 229 H (34-104) U/L Albumin 2.9 L (3.4-5.0) gm/dl (1) Contusion of lower leg, right Encounter type: initial encounter Qualified Code(s): S80.11XA - Contusion of right lower leg, initial encounter
[2022-05-17] MEDS: UMECLIDINIUM/VILANTEROL 62.5/25MCG 7 PUFFS/INHALER INH SCH (20:39)
[2022-05-17] MEDS ORDERED: VANCOMYCIN HCL 1,250 MG in SODIUM CHLORIDE 0.9% 250 ML IV SCH (21:00)
[2022-05-17] MEDS ORDERED: VANCOMYCIN HCL 1,000 MG in SODIUM CHLORIDE 0.9% 250 ML IV SCH (21:00)
[2022-05-18 05:20] LABS: Hematocrit (blood only) 34.7 % (37.0-47.0); Hemoglobin 11.5 g/dl (12.0-16.0); Mean Corpuscular Hemoglobin 29.9 pg (25.0-34.0); Mean Corpuscular Hgb Conc 33.1 g/dL (32.0-36.0); Mean Corpuscular Volume 90.4 fL (80.0-100.0); Mean Platelet Volume 10.5 fL (9.4-12.4); Platelet Count 217 K/uL (130-400); RDW Standard Deviation 49.6 fL (36.4-46.3); Red Blood Count 3.84 M/uL (4.20-5.40); White Blood Count 5.97 K/ul (4.8-10.8)
[2022-05-18 07:20] LABS: Calcium 8.8 mg/dl (8.5-10.1); Potassium 3.9 mmol/L (3.5-5.1)
[2022-05-18 07:26] LABS: BUN Creatinine Ratio 35.8 (10-20); Est GFR (African American) 42.7 ml/min; Est GFR (Non-African American) 36.9 ml/min
[2022-05-18] MEDS: METOPROLOL TARTRATE 50 MG TAB PO SCH ×2 (07:54→21:10)
[2022-05-18] MEDS ORDERED: lisinopril 10 MG TAB PO SCH (09:00)
[2022-05-18] MEDS: PROCHLORPERAZINE MALEATE 5 MG TAB PO SCH ×3 (10:36→21:10)
[2022-05-18] MEDS: ENOXAPARIN INJ 40 MG/0.4 ML SYR SQ SCH (10:36)
[2022-05-18] MEDS: CYANOCOBALAMIN (B-12) 500 MCG TABLET PO SCH ×2 (10:36→21:10)
--- NOTE | 2022-05-18 13:29 | Pharmacy Report ---
Pharmacy PK ABX Note - Date of Service May 18, 2022 - Assessment and Plan Assessment 76 year old F receiving empiric vancomycin for treatment of possible cellulitis of right lower extremity. Pertinent microbiologic data includes: 05/17/22 blood cultures pending. Per H&P, patient has history of MRSA. Likely reasonable to de-escalate antibiotics to provide MSSA/strep coverage if non-purulent infection, but vancomycin okay for now in context of MRSA history. Day # 1 of antimicrobial therapy. 05/18: patient's scr increased from 0.99 to 1.37. Random level obtained and dose will be adjusted. Plan Vancomycin * Decrease Maintenance dose: 750 mg IV every 24 hours * Regimen is predicted to achieve target AUC/ANSLEY of 400-600 mg/L.hr * Random level ordered for: 05/19/22 Pharmacy will continue to follow and will adjust dose/frequency as necessary. Thank you. Pharmacy has transitioned to AUC monitoring for vancomycin. AUC/ANSLEY is the preferred PK/PD target and is associated with decreased risk of nephrotoxicity compared to traditional trough targets.
[2022-05-18] MEDS ORDERED: FUROSEMIDE INJ 20 MG/2 ML VIAL IV ONE (15:03)
--- NOTE | 2022-05-18 15:06 | Hospitalist Progress Note ---
Date of Service May 18, 2022 Assessment & Plan (1) Contusion of lower leg, right: Plan: Patient is a 76 yr female presents with a mechanical fall and right lower extremity pain. She is being managed for the following: Mechanical fall Right lower extremity pain secondary to above Possible cellulitis --Right Leg CT:No acute fracture within the right tibia or fibula. Extensive subcutaneous edema of the visualized right lower extremity. No fluid collection to suggest hematoma. Small right knee joint effusion. Moderate right knee osteoarthritis. --Venous Doppler:No evidence of deep venous thrombus within the right lower extremity. --Right Leg X ray:No acute fracture within the right tibia or fibula. Extensive right lower leg soft tissue swelling. --Elevated CRP, procalcitonin Blood cultures pending, ng so far Imaging not suggestive of any fractures Pain control Fall precautions PT OT as able c/w vanc /. Volume overload: Likely multifactorial Chronic malignant pleural effusion: had rt pleurex cath Metastatic disease S/P right Pleurx catheter Acute and Chronic diastolic CHF Hypoalbuminemia --CXR:There is a right basilar chest tube and a small right pleural effusion. No pneumothorax. There is a small to moderate left pleural effusion with left basilar densities favoring compressive atelectasis. Venous Doppler negative for DVT. BNP nl. ECHO - mild concentric LVH, EF 65-70%. Gr I diastolic dysfunction. received iv lasix, reports improving swelling ble, will continue one more dose iv lasix for now. Torsemide on hold Monitor and replace electrolytes as needed Cardiology evaled, appreciate recs. Monitor I's and O's, daily weight Continue metoprolol, lisinopril Mild elevation in creatinine, follow BMP in a.m. Hold lisinopril. Hyponatremia Likely secondary to volume overload Monitor sodium levels No change in mental status currently H/O Metastatic B/L Breast cancer S/P bilateral mastectomy, chemoradiation Currently not on any chemotherapy Malignant pleural effusion S/P PleurX catheter on the right side, gets drained 3 times a week Palliative consult, await recs. Other chronic medical conditions: HTN/CKD stage III --resume home meds as able. Delete that DVT prophylaxis: Lovenox subcu CODE STATUS: DNR/DNI Admission and Anticipated Discharge Date Admission Date: May 17, 2022 Subjective Patient seen and examined at bedside as a follow-up of mechanical fall, right lower extremity pain secondary to fall, possible RLE cellulitis, volume overload/multifactorial. Patient was lying in bed, alert and oriented, reports eating okay and moving bowels okay, denies any pain or discomfort, patient's daughter at bedside who was updated about the plan of care/agreeable, denies any new acute event overnight, reports feeling better, denies any chest pain no headache or dizziness, reports her leg swelling getting better. Physical Exam Physical Exam: GENERAL: Alert and oriented x3. NAD, on RA. Chronically weak/ill appearing. HEENT: No pallor, no icterus. Pupils equal, round and reactive to light. Oral mucosa moist. NECK: No JVD, no neck masses. HEART: S1 and S2 heard. Regular rate and rhythm. + murmur, no gallop. RESPIRATORY SYSTEM: Normal AP diameter. No accessory muscle use. No wheezing, no crackles. LLL decreased breath sounds. RLL-pleurex cath noted. ABDOMEN: Soft, bowel sounds present, nontender, no distention. CENTRAL NERVOUS SYSTEM: No facial droop. Speech is clear. Obeys simple commands. Moves extremities. EXTREMITIES: 2+ ble edema, RLE erythema - improving per pt's dtr at bedside. Results & Data Results & Data ([facility]) Vital Signs (Past 12 Hours) Vital Signs Temp Pulse Pulse Resp BP Pulse Ox O2 Del Method 05/18/22 12:37 36.4 C L 92 H 18 116/65 97 Room Air 05/18/22 09:50 81 05/18/22 08:05 Room Air 05/18/22 07:51 36.3 C L 97 H 18 97/50 L 97 Room Air (1) Contusion of lower leg, right Encounter type: initial encounter Qualified Code(s): S80.11XA - Contusion of right lower leg, initial encounter
[2022-05-18] MEDS: UMECLIDINIUM/VILANTEROL 62.5/25MCG 7 PUFFS/INHALER INH SCH (21:10)
[2022-05-18] MEDS: VANCOMYCIN HCL 750 MG in SODIUM CHLORIDE 0.9% 250 ML IV SCH (21:15)
[2022-05-19 06:18] LABS: Hematocrit (blood only) 34.8 % (37.0-47.0); Hemoglobin 11.6 g/dl (12.0-16.0); Mean Corpuscular Hemoglobin 29.7 pg (25.0-34.0); Mean Corpuscular Hgb Conc 33.3 g/dL (32.0-36.0); Mean Corpuscular Volume 89.2 fL (80.0-100.0); Mean Platelet Volume 10.7 fL (9.4-12.4); Platelet Count 235 K/uL (130-400); RDW Coefficient of Variation 15.1 % (11.5-14.5); RDW Standard Deviation 48.8 fL (36.4-46.3); White Blood Count 5.68 K/ul (4.8-10.8)
[2022-05-19 06:28] LABS: BUN Creatinine Ratio 35.7 (10-20); Calcium 8.6 mg/dl (8.5-10.1); Creatinine Clr Calc Pharmacy 27.8 ml/min; Est GFR (African American) 40.6 ml/min; Magnesium 1.7 mg/dl (1.7-2.4); Phosphorus 3.3 mg/dl (2.5-4.9); Potassium 3.8 mmol/L (3.5-5.1)
--- NOTE | 2022-05-19 09:13 | Ultrasound Report ---
ULTRASOUND ASCITES CHECK CLINICAL HISTORY: Abdominal ascites. COMPARISON STUDY: PET/CT dated 12/18/2021. FINDINGS: Real-time rodríguez scale sonography of all 4 quadrants of the abdomen is performed to assess fo r abdominal ascites. There is a small volume of abdominopelvic ascites seen in all 4 quadrants. The b ladder is decompressed around a Mccoy catheter. The liver is markedly heterogeneous, likely represent ing neoplasm when correlated with the prior PET examination. IMPRESSION: Small volume abdominopelvic ascites. Electronically signed by: Good Chowdary M.D. 05/19/2022 9:12 AM
[2022-05-19] MEDS: PROCHLORPERAZINE MALEATE 5 MG TAB PO SCH ×3 (09:35→20:53)
[2022-05-19] MEDS: ACETAMINOPHEN 325 MG TAB PO PRN (09:35)
[2022-05-19] MEDS: METOPROLOL TARTRATE 50 MG TAB PO SCH ×2 (09:35→20:53)
[2022-05-19] MEDS: CYANOCOBALAMIN (B-12) 500 MCG TABLET PO SCH ×2 (09:35→20:53)
[2022-05-19] MEDS: ENOXAPARIN INJ 30 MG/0.3 ML SYR SQ SCH (10:20)
--- NOTE | 2022-05-19 12:07 | Pharmacy Report ---
Pharmacy PK ABX Note - Date of Service May 19, 2022 - Assessment and Plan Assessment Background: 76 year old F receiving empiric vancomycin for treatment of possible cellulitis of right lower extremity. Pertinent microbiologic data includes: 05/17/22 blood cultures pending. Per H&P, patient has history of MRSA. Likely reasonable to de-escalate antibiotics to provide MSSA/strep coverage if non- purulent infection, but vancomycin okay for now in context of MRSA history. Day # 2 of antimicrobial therapy. 05/18: patient's scr increased from 0.99 to 1.37. Random level obtained and dose will be adjusted. 05/19: Random level obtained ~ 8 hours after last dose. Indicates regimen will achieve target range. Will continue current dose. Plan Vancomycin * Continue maintenance dose: 750 mg IV every 24 hours * Regimen is predicted to achieve target AUC/ANSLEY of 400-600 mg/L.hr * Random level ordered for: repeat in another ~48 hours or as clinically indicated Pharmacy will continue to follow and will adjust dose/frequency as necessary. Thank you. Pharmacy has transitioned to AUC monitoring for vancomycin. AUC/ANSLEY is the preferred PK/PD target and is associated with decreased risk of nephrotoxicity compared to traditional trough targets.
[2022-05-19] MEDS ORDERED: HYDROmorphone INJ 0.5 MG/0.5 ML SYR IV PRN (12:09)
[2022-05-19] MEDS ORDERED: ACETAMINOPHEN 325 MG TAB PO PRN (12:10)
--- NOTE | 2022-05-19 13:28 | Hospitalist Progress Note ---
Date of Service May 19, 2022 Assessment & Plan (1) Contusion of lower leg, right: Plan: Patient is a 76 yr female presents with a mechanical fall and right lower extremity pain. She is being managed for the following: Mechanical fall Right lower extremity pain secondary to above Possible cellulitis --Right Leg CT:No acute fracture within the right tibia or fibula. Extensive subcutaneous edema of the visualized right lower extremity. No fluid collection to suggest hematoma. Small right knee joint effusion. Moderate right knee osteoarthritis. --Venous Doppler:No evidence of deep venous thrombus within the right lower extremity. --Right Leg X ray:No acute fracture within the right tibia or fibula. Extensive right lower leg soft tissue swelling. --Elevated CRP, procalcitonin Blood cultures pending, ng so far Imaging not suggestive of any fractures Pain control Fall precautions PT OT as able c/w vanc 2/. Volume overload: Likely multifactorial Chronic malignant pleural effusion: had rt pleurex cath Metastatic disease: pain mx S/P right Pleurx catheter Acute and Chronic diastolic CHF Hypoalbuminemia --CXR:There is a right basilar chest tube and a small right pleural effusion. No pneumothorax. There is a small to moderate left pleural effusion with left basilar densities favoring compressive atelectasis. Venous Doppler negative for DVT. BNP nl. ECHO - mild concentric LVH, EF 65-70%. Gr I diastolic dysfunction. will c/w home diuresis Monitor and replace electrolytes as needed Cardiology evaled, appreciate recs. Monitor I's and O's, daily weight Continue metoprolol, lisinopril held Mild elevation in creatinine, follow BMP in a.m. Hold lisinopril. Hyponatremia Likely secondary to volume overload/multifactorial Monitor sodium levels No change in mental status currently H/O Metastatic B/L Breast cancer S/P bilateral mastectomy, chemoradiation Currently not on any chemotherapy Malignant pleural effusion S/P PleurX catheter on the right side, gets drained 3 times a week Palliative consult, await recs. Other chronic medical conditions: HTN/CKD stage III --resume home meds as able. Delete that DVT prophylaxis: Lovenox subcu CODE STATUS: DNR/DNI Admission and Anticipated Discharge Date Admission Date: May 17, 2022 Subjective Patient seen and examined at bedside as a follow-up of mechanical fall, right lower extremity pain secondary to fall, possible RLE cellulitis, volume overload/multifactorial. Patient was lying in bed, alert and oriented, reports skipping breakfast today but moving bowels okay/loose stool yesterday, reports some mid to lower abdominal pain, concern of urinary retention with bladder scan per RN, Mccoy catheter was changed with no significant urinary drainage, ultrasound bladder was ordered stat/reviewed which was positive for ascites and did not show any urinary retention. Patient's daughter/other family members at bedside who was updated about the plan of care/agreeable, patient reports being okay otherwise, denies any chest pain no headache or dizziness, reports her leg swelling getting better. Physical Exam Physical Exam: GENERAL: Alert and oriented x3. NAD, on RA. Chronically weak/ill appearing. HEENT: No pallor, no icterus. Pupils equal, round and reactive to light. Oral mucosa moist. NECK: No JVD, no neck masses. HEART: S1 and S2 heard. Regular rate and rhythm. + murmur, no gallop. RESPIRATORY SYSTEM: Normal AP diameter. No accessory muscle use. No wheezing, no crackles. LLL decreased breath sounds. RLL-pleurex cath noted. ABDOMEN: Soft, bowel sounds present, mid belly mild tender, no distention. CENTRAL NERVOUS SYSTEM: No facial droop. Speech is clear. Obeys simple comm ands. Moves extremities. EXTREMITIES: 2+ ble edema, RLE erythema - improving Results & Data Results & [facility] ([facility]) Vital Signs (Past 12 Hours) Vital Signs Temp Pulse Pulse Resp BP Pulse Ox O2 Del Method 05/19/22 12:04 36.4 C L 70 18 95/60 L 96 Room Air 05/19/22 09:34 Room Air 05/19/22 06:01 75 05/19/22 08:24 36.4 C L 74 17 108/58 L 97 Room Air 05/19/22 03:09 36.8 C 73 99/59 L 94 Room Air (1) Contusion of lower leg, right Encounter type: initial encounter Qualified Code(s): S80.11XA - Contusion of right lower leg, initial encounter
[2022-05-19] MEDS: oxyCODONE HCL IR 5 MG TAB (IMMEDIATE RELEASE) PO PRN ×2 (14:42→20:55)
[2022-05-19] MEDS: VANCOMYCIN HCL 750 MG in SODIUM CHLORIDE 0.9% 250 ML IV SCH (20:52)
[2022-05-19] MEDS: UMECLIDINIUM/VILANTEROL 62.5/25MCG 7 PUFFS/INHALER INH SCH (20:52)
[2022-05-20 06:50] LABS: Hematocrit (blood only) 35.8 % (37.0-47.0); Mean Corpuscular Hgb Conc 33.5 g/dL (32.0-36.0); Mean Corpuscular Volume 89.5 fL (80.0-100.0); Mean Platelet Volume 10.1 fL (9.4-12.4); Platelet Count 234 K/uL (130-400); RDW Coefficient of Variation 15.2 % (11.5-14.5); RDW Standard Deviation 49.6 fL (36.4-46.3); White Blood Count 6.64 K/ul (4.8-10.8)
[2022-05-20 06:53] LABS: BUN Creatinine Ratio 39.8 (10-20); Calcium 8.6 mg/dl (8.5-10.1); Creatinine Clr Calc Pharmacy 30.4 ml/min; Est GFR (African American) 44.3 ml/min; Est GFR (Non-African American) 38.2 ml/min; Magnesium 1.7 mg/dl (1.7-2.4); Phosphorus 3.1 mg/dl (2.5-4.9); Potassium 4.2 mmol/L (3.5-5.1)
[2022-05-20] MEDS: METOPROLOL TARTRATE 50 MG TAB PO SCH ×2 (08:09→21:17)
[2022-05-20] MEDS: CYANOCOBALAMIN (B-12) 500 MCG TABLET PO SCH ×2 (08:09→21:17)
[2022-05-20] MEDS: PROCHLORPERAZINE MALEATE 5 MG TAB PO SCH (08:09)
[2022-05-20] MEDS: TORSEMIDE 20 MG TAB PO SCH (08:11)
[2022-05-20] MEDS ORDERED: ONDANSETRON INJ 2 MG/ML 2 ML VIAL IV STA (10:53)
[2022-05-20] MEDS: ENOXAPARIN INJ 30 MG/0.3 ML SYR SQ SCH (10:59)
[2022-05-20] MEDS ORDERED: ONDANSETRON 4 MG OD TAB PO PRN (11:14)
--- NOTE | 2022-05-20 11:48 | Palliative Care Consultation ---
Date of Consultation May 20, 2022 Assessment & Plan (1) Abdominal pain: with hepatic metastases Her goal for pain relief is 2-3 and current dose of oxycodone does not lower pain to that level. She is tolerating current dose with no sedation or confusion. Will increase dose to 7.5mg as needed. (2) Nausea: Unable to tolerate po compazine. Rotate to zofran ODT. (3) Palliative care encounter: I met with Mrs. Kendrick, her daughter Laureen and a granddaughter at bedside. Mrs Kendrick tells me that she knows that she is approaching her dying time. "I don't think I will live to see 78". However, she tells me that she has a "hunch" that it won't be for a little while yet. She tells me that she is not worried about her dying time. When that comes, she would prefer to be at home with her family around her. She tells me that being with her family is the most important thing to her. "What else is there?" She is not receiving any further cancer treatment and is hopeful that she will be able to be at home and enjoy the time that she has. Her daughter, Laureen, is very supportive of this. She would like to have her mother at home and has family support to help with care. We discussed hospice care as additional support. Initially, Mrs. Kendrick told me that she wasn't sure that she was "at the end". I explained that she would currently be eligible for hospice and that she didn't need to be within days of her dying time to benefit from hospice support. We discussed hospice team care and support as well as additional hospice benefits. Laureen is very relieved to have someone to call with questions and help guide her with her mother's care. Mrs. Kendrick likes the idea of her family having support through her illness and after her . Laureen has heard good things about [facility] and has chosen [facility]. Discussed with case management and notified Dr. Melgoza. History of Present Illness Reason for Consultation: goals of care Requesting Physician: Dr. Cohen Attending Physician: Hannah Solomon MD History of Present Illness 76 yo lady with bilateral breast cancer originally diagnosed in 2010. She has had adjuvant chemo and radiation therapies and is not currently receiving any cancer treatment. She has known metastatic disease to liver and T7 vertebral body. She complains of aching intermittent pain in her mid abdomen. There are no particular triggers. Pain is currently 6/10 and goes down to 3-4/10 with 5mg oxycodone. She has bilateral pleural effusions with right pleurx but denies dyspnea at this time. She also complains of nausea and has not been able to tolerate oral compazine. She denies constipation and LBM was 05/19/22. She is followed by Dr. Melgoza in outpatient palliative care. Allergies Allergy/AdvReac Type Severity Reaction Status Date / Time Iodinated Contrast Media Allergy Severe SOB Verified 05/17/22 00:35 Penicillins Allergy Severe SOB Verified 05/17/22 00:35 aspirin AdvReac Mild Stomach Verified 05/17/22 00:35 upset codeine AdvReac Mild Stomach Verified 05/17/22 00:35 upset Home Medications Medication Instructions Recorded Confirmed Type lisinopril 20 mg tablet 20 mg PO DAILY 08/22/21 05/17/22 History albuterol sulfate 90 mcg/actuation 2 puff inhalation Q4 PRN Shortness 05/17/22 05/17/22 History aerosol inhaler (Ventolin HFA) Of Breath cyanocobalamin (vitamin B-12) 1,000 mcg subcut MONTHLY 05/17/22 05/17/22 History 1,000 mcg/mL injection solution cyanocobalamin (vitamin B-12) 500 500 mcg PO BID 05/17/22 05/17/22 History mcg lozenges (Vitamin B-12) metoprolol tartrate 50 mg tablet 50 mg PO BID 05/17/22 05/17/22 History prochlorperazine maleate 5 mg 5 mg PO TID 05/17/22 05/17/22 History tablet torsemide 20 mg tablet 20 mg PO QAM 05/17/22 05/17/22 History umeclidinium 62.5 mcg-vilanterol 1 ea inhalation QPM 05/17/22 05/17/22 History 25 mcg/actuation powdr for inhalation (Anoro Ellipta) Patient History Medical History Bilateral breast cancer History of chemotherapy History of GI bleed History of radiation therapy Neuropathy Osteonecrosis left jaw Primary malignant neoplasm of breast with metastasis SOB (shortness of breath) Viral myocarditis Surgical History H/O bilateral mastectomy with left axillary lymph node dissection 2010 H/O tubal ligation History of total left knee replacement (TKR) S/P appendectomy S/P cholecystectomy Family History Mother , 73yo Alcoholism Father , 68yo Alcoholism Stomach ulcer Sister Breast cancer Sister Family history unknown Son No problems noted. Son No problems noted. Daughter No problems noted. Family/Other Breast cancer Maternal aunt Social History Smoking Status: Former smoker Cigarettes Per Day: 1 PPD x 50+yrs; Smoking End Date: 6 years ago; Second Hand Exposure: Yes; Hx Alcohol Use: No Hx Substance Use: No Preferred Language: Portuguese Communication Ability: Effective Visual Impairment: No Limitations Hearing Ability: Normal Research/Program Director Required: No Beliefs That Will Affect Care: None marital status: Current Living Situation: Family Current Living Situation Comment: Lives with daughter and grand-daughter current occupational status: retired current occupation: RN Other Information That Helps Us Care for You: No Feels Safe at Home: Yes Safety Concerns: Feels Safe At This Time caffeine: Yes (1 cup/day) during the past year weight has: remained stable Assistive Devices: Walker Review of Systems Review of Systems: ESAS Pain 2/3 Dyspnea 0/3 Nausea 1/3 Anxiety 0/3 Fatigue 1/3 Drowsiness 0/3 Physical Exam Constitutional: no acute distress ENMT: Mouth: oral mucous membranes not dry Respiratory: normal respiratory effort; no labored breathing Cardiovascular: Rate/Rhythm: regular rate and regular rhythm Gastrointestinal (Abdomen): tender midline Musculoskeletal: Extremities: + muscle atrophy Skin: warm and dry Neurologic: Speech / Cognition: normal cognition Psychiatric: A+Ox3, euthymic affect Genitourinary: wall catheter Results & Data ([facility]) Vital Signs (Past 12 Hours) Vital Signs Temp Pulse Pulse Resp BP Pulse Ox O2 Del Method 05/20/22 11:37 97.7 F 71 18 111/65 91 Room Air 05/20/22 07:51 97.5 F L 89 18 108/51 L 94 Room Air 05/20/22 00:00 87 05/20/22 03:17 97.9 F 86 19 111/68 93 Room Air 05/19/22 23:53 97.9 F 83 18 116/52 L 95 Room Air PG Care Time/CCT Total # of Minutes Spent Total Time Spent: 57 Total Time Spent with Patient: Total time spent is greater than 50% in coordination of care (as documented) at patient's floor/unit and/or counseling patient:[phone] goals of care, symptom management, patient and family education and support, hospice, coordination of care Coding Level of Care Code 57397 INT INP/OBS CARE 2/55MIN Diagnoses Abdominal pain R10.9 Nausea R11.0 Palliative care encounter Z51.5
--- NOTE | 2022-05-20 15:50 | Hospitalist Progress Note ---
Date of Service May 20, 2022 Assessment & Plan (1) Contusion of lower leg, right: Plan: Patient is a 76 yr female presents with a mechanical fall and right lower extremity pain. She is being managed for the following: Mechanical fall Right lower extremity pain secondary to above Possible cellulitis --Right Leg CT:No acute fracture within the right tibia or fibula. Extensive subcutaneous edema of the visualized right lower extremity. No fluid collection to suggest hematoma. Small right knee joint effusion. Moderate right knee osteoarthritis. --Venous Doppler:No evidence of deep venous thrombus within the right lower extremity. --Right Leg X ray:No acute fracture within the right tibia or fibula. Extensive right lower leg soft tissue swelling. --Elevated CRP, procalcitonin Blood cultures pending, ng so far Imaging not suggestive of any fractures Pain control Fall precautions PT OT as able c/w vanc 2/3. Volume overload: Likely multifactorial Chronic malignant pleural effusion: had rt pleurex cath Metastatic disease: pain mx S/P right Pleurx catheter Acute and Chronic diastolic CHF Hypoalbuminemia --CXR:There is a right basilar chest tube and a small right pleural effusion. No pneumothorax. There is a small to moderate left pleural effusion with left basilar densities favoring compressive atelectasis. Venous Doppler negative for DVT. BNP nl. ECHO - mild concentric LVH, EF 65-70%. Gr I diastolic dysfunction. will c/w home diuresis Monitor and replace electrolytes as needed Cardiology evaled, appreciate recs. Monitor I's and O's, daily weight Continue metoprolol, lisinopril held Mild elevation in creatinine, follow BMP in a.m. Hold lisinopril. Hyponatremia Likely secondary to volume overload/multifactorial Monitor sodium levels No change in mental status currently H/O Metastatic B/L Breast cancer S/P bilateral mastectomy, chemoradiation Currently not on any chemotherapy Malignant pleural effusion S/P PleurX catheter on the right side, gets drained 3 times a week Palliative consult, likely dc home w/ hospice. . Other chronic medical conditions: HTN/CKD stage III --resume home meds as able. DVT prophylaxis: Lovenox subcu CODE STATUS: DNR/DNI Dispo: likely dc karolyn to home w/ hospice. Pt's dtr katina ([phone]) was given a phone call, left voicemail to call us back. Admission and Anticipated Discharge Date Admission Date: May 17, 2022 Subjective Patient seen and examined at bedside as a follow-up of mechanical fall, right lower extremity pain secondary to fall, possible RLE cellulitis, volume overload/multifactorial. Patient was lying in recliner, alert and oriented, reports eating ok today and moving bowels okay/loose stool, reports some mid to lower abdominal pain which is better controlled than yesterday. Patient reports being okay otherwise, denies any chest pain no headache or dizziness, reports her leg swelling getting better. Physical Exam Physical Exam: GENERAL: Alert and oriented x3. NAD, on RA. Chronically weak/ill appearing. HEENT: No pallor, no icterus. Pupils equal, round and reactive to light. Oral mucosa moist. NECK: No JVD, no neck masses. HEART: S1 and S2 heard. Regular rate and rhythm. + murmur, no gallop. RESPIRATORY SYSTEM: Normal AP diameter. No accessory muscle use. No wheezing, no crackles. LLL decreased breath sounds. RLL-pleurex cath noted. ABDOMEN: Soft, bowel sounds present, mid belly mild tender, no distention. CENTRAL NERVOUS SYSTEM: No facial droop. Speech is clear. Obeys simple commands. Moves extremities. EXTREMITIES: 2+ ble edema, RLE erythema - improving Results & Data Results & Data ([facility]) Vital Signs (Past 12 Hours) Vital Signs Temp Pulse Pulse Resp BP Pulse Ox O2 Del Method 05/20/22 15:24 72 05/20/22 08:00 88 05/20/22 08:00 Room Air 05/20/22 11:37 36.5 C 71 18 111/65 91 Room Air 05/20/22 07:51 36.4 C L 89 18 108/51 L 94 Room Air (1) Contusion of lower leg, right Encounter type: initial encounter Qualified Code(s): S80.11XA - Contusion of right lower leg, initial encounter
[2022-05-20] MEDS: oxyCODONE HCL IR 5 MG TAB (IMMEDIATE RELEASE) PO PRN (16:56)
[2022-05-20] MEDS: VANCOMYCIN HCL 750 MG in SODIUM CHLORIDE 0.9% 250 ML IV SCH (21:16)
[2022-05-21] MEDS: UMECLIDINIUM/VILANTEROL 62.5/25MCG 7 PUFFS/INHALER INH SCH (01:32)
[2022-05-21 06:44] LABS: Creatinine Clr Calc Pharmacy 30.6 ml/min; Est GFR (African American) 44.7 ml/min; Est GFR (Non-African American) 38.5 ml/min
[2022-05-21] MEDS: oxyCODONE HCL IR 5 MG TAB (IMMEDIATE RELEASE) PO PRN ×2 (07:52→12:38)
[2022-05-21] MEDS: CYANOCOBALAMIN (B-12) 500 MCG TABLET PO SCH (08:09)
[2022-05-21] MEDS: TORSEMIDE 20 MG TAB PO SCH (08:09)
[2022-05-21] MEDS: METOPROLOL TARTRATE 50 MG TAB PO SCH (08:09)
[2022-05-21 11:27] VITALS: BP 113/62; TEMP 97.9; O2SAT 91
[2022-05-21] MEDS: ENOXAPARIN INJ 30 MG/0.3 ML SYR SQ SCH (12:02)
--- NOTE | 2022-05-21 12:55 | Discharge Summary ---
Date of Service May 21, 2022 Admission HPI Per Admitting Provider CHIEF COMPLAINT: Status post fall, right lower extremity pain. HISTORY OF PRESENT ILLNESS: This is a 76-year-old female with past medical history significant for hyperlipidemia, grade 1 diastolic dysfunction, hypert ension, chronic kidney disease stage III, history of MRSA, history of viral myocarditis, history of GI bleed, history of chemotherapy-induced neuropathy, history of bilateral breast cancer, initially diagnosed in June 2010, status post bilateral mastectomies, left axillary lymph node dissection in 2015, noticed to have metastatic disease involving the spine as well as paraesophageal region, now has liver metastatic disease as well as bilateral lung nodules, which was suspicious in 2019, malignant pleural effusion. She is status post adjuvant chemotherapy, adjuvant radiation therapy. Currently, chemo is stopped. She has bilateral malignant pleural effusion, status post right-sided PleurX catheter placement, gets fluid drained 3 times a week. She is currently DNR/DNI. She was living alone, ambulating without any support. As per daughter in the room, lower extremity swelling is getting worse since the last 1 month. She fell a couple of days ago, mechanical fall and fell on the right side and today she was noticed to have a lot of pain. Currently after fall living with the daughter, and was brought into the hospital because of pain. Initial workup was possible cellulitis and ER started on vancomycin. Resting comfortably and hemodynamically stable. Denies any headache. No neck pain, no back pain. No chest pain. While resting no shortness of breath. Appetite is okay. No difficulty swallowing. Vision is okay. No earache. has some runny nose. No sore throat. No nausea, no abdominal pain. Normal bowel and bladder movements as per the patient. ALLERGIES: IODINATED CONTRAST MEDIA, PENICILLIN, ASPIRIN, CODEINE. PAST MEDICAL HISTORY: As mentioned above. PAST SURGICAL HISTORY: Bilateral radical mastectomy. MEDICATIONS: The patient is currently on albuterol 2 puffs inhalation q. 4 hours p.r.n., vitamin B12 1000 mcg subcutaneous monthly, vitamin B12 500 mcg p.o. b.i.d., lisinopril 20 mg p.o. daily, metoprolol tartrate 50 mg p.o. b.i.d., prochlorperazine 5 mg p.o. t.i.d., torsemide 20 mg p.o. a.m., Anoro Ellipta one inhalation q.p.m. FAMILY HISTORY: Significant for mother had alcoholism, liver cancer; father had pancreatic and liver cancer; sister has breast cancer. SOCIAL HISTORY: , currently living with the daughter. Former smoker, quit in 2019, smoked 1 pack a day for 60 years. Stopped drinking alcohol in early 30s. No drug use. REVIEW OF SYSTEMS: As per HPI. Rest of the review of systems is negative. Admission Exam Per Admitting Provider GENERAL: The patient is of moderate build, not in acute distress. VITAL SIGNS: Temperature 36.5, pulse 93, respiratory rate 28, blood pressure 142/72, oxygen 96% on room air. HEENT: Pupils equal, round and reactive to light. Oral mucosa moist. NECK: No JVD or neck masses. CARDIOVASCULAR: S1 and S2 heard. Regular rate and rhythm. No murmur, no gallop. RESPIRATORY SYSTEM: Normal AP diameter. No accessory muscle use. No wheezing, no crackles. ABDOMEN: Soft, bowel sounds present, nontender, no distention. CENTRAL NERVOUS SYSTEM: Alert and oriented. Speech is clear. Obeys simple commands. Insight is okay. Moves extremities. EXTREMITIES: Bilateral lower extremity gross edema present. Right lower extremity, tenderness in the pollard region and also mild erythematous changes in the lower part of the leg. Principal Diagnosis Mechanical fall Right lower extremity pain secondary to above Possible cellulitis Volume overload: Likely multifactorial Chronic malignant pleural effusion:had rt pleurex cath Metastatic disease: pain mx S/P right Pleurx catheter Acute and Chronic diastolic CHF Hypoalbuminemia Hyponatremia H/O Metastatic B/L Breast cancer Discharge Exam GENERAL: Alert and oriented x3. NAD, on RA. Chronically weak/ill appearing. HEENT: No pallor, no icterus. Pupils equal, round and reactive to light. Oral mucosa moist. NECK: No JVD, no neck masses. HEART: S1 and S2 heard. Regular rate and rhythm. + murmur, no gallop. RESPIRATORY SYSTEM: Normal AP diameter. No accessory muscle use. No wheezing, no crackles. LLL decreased breath sounds. RLL-pleurex cath noted. ABDOMEN: Soft, bowel sounds present, mid belly mild tender, no distention. CENTRAL NERVOUS SYSTEM: No facial droop. Speech is clear. Obeys simple commands. Moves extremities. EXTREMITIES: 2+ ble edema, RLE erythema - improving Discharge Data Allergies Allergy/AdvReac Type Severity Reaction Status Date / Time Iodinated Contrast Media Allergy Severe SOB Verified 05/17/22 00:35 Penicillins Allergy Severe SOB Verified 05/17/22 00:35 aspirin AdvReac Mild Stomach Verified 05/17/22 00:35 upset codeine AdvReac Mild Stomach Verified 05/17/22 00:35 upset Consultations 05/16/22 23:50 ED Decision to Admit Stat 05/17/22 09:47 Consult Cardiology Routine 05/17/22 15:55 Consult Palliative Care Routine Ordered Studies 05/16/22 21:46 US venous doppler LE RT Urgent 05/17/22 03:01 CT leg [CT tib/fib RT wo con] Routine 05/19/22 08:32 US abdomen limited Stat Hospital Course (1) Contusion of lower leg, right: Patient is a 76 yr female presents with a mechanical fall and right lower extremity pain. She was managed for the following: Mechanical fall Right lower extremity pain secondary to above Possible cellulitis --Right Leg CT:No acute fracture within the right tibia or fibula. Extensive subcutaneous edema of the visualized right lower extremity. No fluid collection to suggest hematoma. Small right knee joint effusion. Moderate right knee osteoarthritis. --Venous Doppler:No evidence of deep venous thrombus within the right lower extremity. --Right Leg X ray:No acute fracture within the right tibia or fibula. Extensive right lower leg soft tissue swelling. --Elevated CRP, procalcitonin Blood cultures pending, ng so far Imaging not suggestive of any fractures Pain control with narcotics Fall precautions PT OT as able c/w vanc 2/3 to po doxy on dc to complete the course. Volume overload: Likely multifactorial Chronic malignant pleural effusion: had rt pleurex cath Metastatic disease: pain mx S/P right Pleurx catheter Acute and Chronic diastolic CHF Hypoalbuminemia --CXR:There is a right basilar chest tube and a small right pleural effusion. No pneumothorax. There is a small to moderate left pleural effusion with left basilar densities favoring compressive atelectasis. Venous Doppler negative for DVT. BNP nl. ECHO - mild concentric LVH, EF 65-70%. Gr I diastolic dysfunction. will c/w home diuresis Cardiology evaled, appreciate recs. Monitor I's and O's, daily weight Continue metoprolol, lisinopril held on dc Mild elevation in creatinine, it has stabilized around 1.3 Hyponatremia Likely secondary to volume overload/multifactorial No change in mental status currently H/O Metastatic B/L Breast cancer S/P bilateral mastectomy, chemoradiation Currently not on any chemotherapy Malignant pleural effusion S/P PleurX catheter on the right side, gets drained 3 times a week Palliative consult, likely dc home w/ hospice. . Other chronic medical conditions: HTN/CKD stage III --resume home meds as able. DVT prophylaxis: Lovenox subcu CODE STATUS: DNR/DNI She is being discharged home with hospice. Pt's dtr katina ([phone]) was given a phone call, updated on status of the patient and made aware of the worsening health as the days go by. she verbalized understanding. Home Health Attestation I certify that this patient is under my care and that I, or a physicians personal banking assistant working with me, had a face to-face encounter that meets the home health [id number] encounter requirements with this patient. The encounter with the patient was in whole, or in part, for the following medical condition, which is the primary reason for home health care (list medical condition): I certify that, based on my findings, the following services are medically necessary home health services: My clinical findings support the need for the above services because: Further, I certify that my clinical findings support that this patient is homebound (i.e. absences from home require considerable and taxing effort and are for medical reasons or jehovah's witness services or infrequently or of short duration when for other reasons) because: Certification for Home Health Services: Based on the above findings, I certify that this patient is confined to the home and needs intermittent correction care, physical therapy and/or speech therapy or continues to need occupational therapy. The patient is under my care, and I have initiated the establishment of the plan of care. This patient will be followed by a physician who will periodically review the plan of care. Total Time Total Time Spent Total Time Spent (In Minutes): 45 Discharge Plan Discharge Items Patient Disposition: Hospice - Home Reason For Visit: LEG PAIN Discharge Diagnosis: Mechanical fall Right lower extremity pain secondary to above Possible cellulitis Volume overload: Likely multifactorial Chronic malignant pleural effusion:had rt pleurex cath Metastatic disease: pain mx S/P right Pleurx catheter Acute and Chronic diastolic CHF Hypoalbuminemia Hyponatremia H/O Metastatic B/L Breast cancer Activity: Resume your previous activity Non-emergency contact: Primary Care Provider Call non-emergency contact if: you have any medication questions Follow-up/Referrals: Benjamín Graff MD [Primary Care Provider] - Diet: Regular Addtl Attending Provider Instructions: You are being discharged to home with hospice. Continue your discharge medication as prescribed until hospice care takes over your care and makes further recommendations. You are also being discharged on pain and nausea medication, use them as prescribed until hospice care makes their own recommendation. Pending Studies at Discharge: Yes (Admitting blood culture final results.) Stand-Alone Forms: [facility] Medications and DC Order Prescriptions: New oxycodone 5 mg Tablet 7.5 mg PO Q4H PRN (Reason: moderate pain) 3 Days Qty: 18 0RF doxycycline hyclate 100 mg tablet 100 mg PO BID 5 Days Qty: 10 0RF ondansetron 4 mg tablet,disintegrating 4 mg PO Q8H PRN (Reason: nausea and vomiting) Qty: 20 0RF hydromorphone [Dilaudid] 2 mg tablet 2 mg PO Q8H PRN (Reason: pain (scale score 7-10)) Qty: 10 0RF Continued prochlorperazine maleate 5 mg tablet 5 mg PO TID Rx Instructions: take 1 tablet in morning,noon and before bedtime torsemide 20 mg tablet 20 mg PO QAM metoprolol tartrate 50 mg tablet 50 mg PO BID albuterol sulfate [Ventolin HFA] 90 mcg/actuation HFA aerosol inhaler 2 puff INHALATION Q4 PRN (Reason: Shortness Of Breath) Anoro Ellipta 62.5-25 mcg/actuation blister with device 1 ea INHALATION QPM cyanocobalamin (vitamin B-12) [Vitamin B-12] 1,000 mcg/mL Solution 1,000 mcg SUBCUT MONTHLY Rx Instructions: every 30 days cyanocobalamin (vitamin B-12) [Vitamin B-12] 500 mcg Lozenge 500 mcg PO BID Discontinued lisinopril 20 mg tablet 20 mg PO DAILY Discharge Orders: Discharge Order (Routine); Ordered 05/21/22 Ordered By: Hannah Solomon Admission Data Admit Date/Time: 05/17/22 01:47 Attending Provider: Hannah Solomon Admit Provider: Golden Newsome Primary Care Provider: Benjamín Graff Other Providers: Golden Newsome ; Jaziel Sandoval ; Shailesh West ; Jeff Felton ; Bimal Aguilar ; Earl Panda ; Tc Alonzo ; Shelly Amaral ; Dianna Bell ; Maricel Randolph ; Pankaj Gong ; Lali Romero. ; [facility],Referral [facility] ; [facility]
[2022-05-21 13:06] VITALS: PULSE 73
== END 2022-05-21 15:03 | disposition hospice, home (50) | DRG 602 ==
LOC: ED 18:59 → 3N 05-17 01:47 → SUATTDRO 05-17 01:47 → 3N 05-17 02:43 → 4W 05-17 08:20